=== PATIENT | female | born 1980 | race African-American/Black ===

== ENCOUNTER 2018-06-07 22:48 | Emergency (ER) | payer BC ==
--- NOTE | 2018-06-07 23:00 | EDPHY ---
H & P Stated Complaint: R HIP PAIN,UNABLE TO MOVE LEG/AFTER CHINESE MASSAGE Time Seen by Provider: 06/07/18 23:00 HPI/ROS: HPI CHIEF COMPLAINT: Right groin pain. HISTORY OF PRESENT ILLNESS: This is a very pleasant 38-year-old female she is otherwise healthy, denies significant medical history presents emergency room with right groin pain. Patient states that she typically gets 90 min massage once a week. She gets a CHINESE massage, which she reports to me is 90 min of deep tissue massage for head to toe. She states when she was working on her groin and legs she had her right leg winged out, flexed at her knee and then turned outward. The massage therapist then stood and put a lot of pressure on the right leg when it was flexed at the knee and then extended outward. This caused stress on her groin. She now has right inner groin discomfort. Appears to be a groin pull/tear. She denies any lateral hip pain. Denies numbness or tingling. With any flexion of her hip, extension of her leg off the bed, or external rotation of her leg she has discomfort in her right groin. Inguinal region.. Declined pain medicine here in emergency room. Past Medical History: Denies significant medical history Past Surgical History: Denies significant surgical history Social History: Denies drugs alcohol tobacco. Family History: Noncontributory ROS REVIEW OF SYSTEMS: 10 Systems were reviewed and negative with the exception of the elements mentioned in the history of present illness. Exam Constitutional triage nursing summary reviewed, vital signs reviewed, awake/ alert. Eyes normal conjunctivae and sclera, EOMI, PERRLA. HENT normal inspection, atraumatic, moist mucus membranes, no epistaxis, neck supple/ no meningismus, no raccoon eyes. Respiratory clear to auscultation bilaterally, normal breath sounds, no respiratory distress, no wheezing. Cardiovascular rate normal, regular rhythm, no murmur, no edema, distal pulses normal. Gastrointestinal soft, non-tender, no rebound, no guarding, normal bowel sounds, no distension, no pulsatile mass. Genitourinary no CVA tenderness. Musculoskeletal right leg right hip and right groin exam: Good femoral pulse. Distally neurovascular intact with normal sensation, warm extremity. Has focal tenderness with flexion of her hip in the inguinal region, external rotation of the leg causes pain in the inguinal region, and extending her leg off the bed gives her discomfort. No lateral hip pain. No signs of significant swelling. Appears to have a groin strain on exam. no midline vertebral tenderness, full range of motion, no calf swelling, no tenderness of extremities, no meningismus, good pulses, neurovascularly intact. Skin pink, warm, & dry, no rash, skin atraumatic. Neurologic awake, alert and oriented x 3, AAOx3, moves all 4 extremities equally, motor intact, sensory intact, CN II-XII intact, normal cerebellar, normal vision, normal speech. Psychiatric normal mood/affect. Heme/Lymph/Immune no lymphadenopathy. Differential Diagnosis: Includes but is not limited to in a particular order inguinal strain, groin strain, musculoskeletal strain, muscle tear, ligamentous injury, fracture Medical Decision Making: Plan for this patient x-ray right hip,, ice pack, declined pain medicine here in emergency room. Re-evaluation: Clinically on exam I believe her to have a groin strain. Recommend anti-inflammatory pain medicine Recommend ice Recommend following up with the PCP/Orthopedics. Patient may benefit from OT/PT. X-ray of the pelvis right hip reviewed negative for acute fracture. Clinically on exam I do feel that she has a groin strain. I do recommend she follows up with her PCP, orthopedics. Recommend ice. Recommend anti-inflammatory pain medicine. Patient declined pain medicine here. Patient is comfortable going home. Has a groin pull. She also understands to return emergency room she develops worsening pain questions or concerns. Source: Patient - Personal History LMP (Females 10-55): 22-28 Days Ago Current Tetanus Diphtheria and Acellular Pertussis (TDAP): Yes - Medical/Surgical History Hx Asthma: Yes Hx Chronic Respiratory Disease: No Hx Diabetes: No Hx Cardiac Disease: No Hx Renal Disease: No Hx Cirrhosis: No Hx Alcoholism: No Hx HIV/AIDS: No Hx Splenectomy or Spleen Trauma: No Other PMH: MIGRAINES, LAP FIBROID REMOVAL 2018, CHILDHOOD ASTHMA - Social History Smoking Status: Never smoked Constitutional: Initial Vital Signs Temperature (C) 36.7 C 06/07/18 22:54 Heart Rate 98 06/07/18 22:54 Respiratory Rate 18 06/07/18 22:54 Blood Pressure 123/96 H 06/07/18 22:54 O2 Sat (%) 100 06/07/18 22:54 O2 Delivery Mode Room Air Allergies/Adverse Reactions: caffeine Allergy (Verified 06/07/18 22:53) latex Allergy (Verified 06/07/18 22:53) peanut Allergy (Verified 06/07/18 22:53) tree nut Allergy (Verified 06/07/18 22:53) over the counter Allergy (Uncoded 06/07/18 22:53) pain med Allergy (Uncoded 06/07/18 22:53) Home Medications: Medication Instructions Recorded Isobipeptine 06/07/18 Toradol 10mg tab 06/07/18 Medical Decision Making - Diagnostics Imaging Results: Imaging Impressions Hip X-Ray 06/07/18 23:00 Impression: No acute, displaced fracture. Departure - Departure Disposition: Home, Routine, Self-Care Clinical Impression: Groin strain Qualifiers: Encounter type: initial encounter Laterality: right Qualified Code(s): S76.211A - Strain of adductor muscle, fascia and tendon of right thigh, initial encounter Condition: Good Instructions: Groin Strain (ED) Additional Instructions: 1. Recommend ice. 2. Recommend anti-inflammatory pain medicine 3. Recommend follow up PCP 4. Orthopedics. Referrals: Hattie Moore MD [Primary Care Provider] - As per Instructions Brian Mesa MD [Medical Doctor] - As per Instructions
[2018-06-08 00:04] VITALS: BP 114/75
== END 2018-06-08 00:03 | disposition home or self-care (01) ==
DX: S76.211A Strain of adductor muscle, fascia and tendon of right thigh, initial encounter (principal)

== ENCOUNTER 2018-09-19 20:23 | Emergency (ER) | payer BC ==
--- NOTE | 2018-09-19 20:40 | EDPHY ---
HPI/HX/ROS/PE/MDM - Data Points Imaging: I viewed and interpreted images myself Narrative: CHIEF COMPLAINT: Shortness of breath, pelvic pain HPI: This patient is a 38 year old female with history of anemia and migraines. She presents today with shortness of breath and pelvic discomfort. Her shortness of breath began yesterday evening before bed. She has difficulty taking a deep breath. She endorses associated headache. Today, she developed severe pelvic pain which radiates to her back and down both legs. This is sharp in nature and she cannot find a comfortable position. She denies any dysuria or hematuria. Her last menstrual period was about three weeks ago. The patient notes she has history of anemia requiring iron transfusion which presented with shortness of breath. She denies fever, chest pain, nausea, vomiting, diarrhea, or other associated symptoms. REVIEW OF SYSTEMS: A comprehensive 10 system review of systems is otherwise negative aside from elements mentioned in the history of present illness and medical decision making. PMH: Migraines. SOCIAL HISTORY: Lives in [place]. Self-employed. Single. PHYSICAL EXAM: General:Patient is alert, in no acute distress. ENT:Eyes are normal to inspection. ENT inspection normal. Neck: Normal inspection. Full range of motion. Respiratory:No respiratory distress. Breath sounds normal bilaterally. Cardiovascular: Regular rate and rhythm. Strong peripheral pulses. Normal cap refill. Abdomen:The abdomen is nontender to palpation. There are no peritoneal signs. There are normal bowel sounds. Back: Normal to inspection. No tenderness to palpation. Skin: Normal color. No rash. Warm and dry. Extremities: Normal appearance. Full range of motion. Neuro: Oriented x3. Normal motor function. Normal sensory function. (Burton Merritt) ED Course: 38 y/o female presents with shortness of breath and pelvic pain. Plan for EKG, chest x-ray, labs including CBC, chemistries, LFTs, UA, BHCG, d-dimer. EKG was ordered and interpreted by myself. Please see [facility] for official reading. Sinus rhythm. Chest x-ray shows evidence of bronchitis vs. airways disease. Reviewed laboratory studies. WBC elevated at 17,000. Labs otherwise unremarkable. D-dimer negative. UA negative. 22:15 Reassessed. Discussed imaging and laboratory results in detail. She declines any pain medications at this time. Plan for US pelvis for further evaluation. (Burton Merritt) The week ultrasound is negative. Will obtain CT scan of the abdomen pelvis for further evaluation. CT scan results are noted. There is soft tissue thickening in the region of the cervix. Patient has had recent negative GC and chlamydia testing. I have offered to perform pelvic exam and do further testing at this time and she is declining. She would prefer to follow up with her OBGYN. She is certainly not toxic in appearance. She does not want any further evaluation in the emergency department. Plan will be for discharge with follow-up as an outpatient. (John Stringer) - Data Points Imaging Results: Imaging Impressions Chest X-Ray 09/19/18 20:44 Impression: Findings most consistent with bronchitis/airways disease are noted. Pelvic/Renal Ultrasound 09/19/18 22:40 Impression: Normal pelvic ultrasound. Results called and discussed with Dr. John Davis on 09/19/2018 at 23:02. EXAM: CT Abdomen and Pelvis with Intravenous Contrast CLINICAL HISTORY: C/O PELVIC PAIN HX FIBROIDS TECHNIQUE: Axial computed tomography images of the abdomen and pelvis with intravenous contrast. CONTRAST: With; ISOVUE 300 80 ML COMPARISON: None provided. FINDINGS: LUNG BASES: No basilar airspace consolidation or pleural effusion. LIVER: The liver size is normal. 4 mm hypoenhancing lesion in the right lobe of the liver that is too small to characterize by CT criteria. GALLBLADDER AND BILE DUCTS: Unremarkable. No calcified stone. No ductal dilation. PANCREAS: Unremarkable. SPLEEN: Unremarkable. ADRENAL GLANDS: Unremarkable. KIDNEYS, URETERS, AND BLADDER: 4 mm cyst of the midpole of the left kidney. No hydronephrosis or nephrolithiasis. No ureteral or bladder calculi. STOMACH AND BOWEL: No obstruction. No wall thickening. No CT evidence of colitis or acute diverticulitis. APPENDIX: No CT evidence for appendicitis. PERITONEUM: Small amount of free fluid in the pelvis. No free air. LYMPH NODES: No lymphadenopathy. REPRODUCTIVE: The uterus and ovaries appear normal. There is thickening in the region of the cervix. VASCULATURE: No aortic aneurysm. BONES: No fracture or suspicious osseous abnormality. ABDOMINAL WALL AND SOFT TISSUES: Unremarkable. IMPRESSION: Soft tissue thickening in the region of the cervix. Cervical malignancy cannot be excluded. Follow-up with pelvic ultrasound is recommended. Small amount of nonspecific free fluid in the pelvis. ELECTRONICALLY SIGNED BY: Rodrigo Walker MD (John Stringer) Laboratory Results: Laboratory Results 09/19/18 20:53 09/19/18 20:53 09/19/18 09/19/18 09/19/18 20:53 20:53 20:53 WBC RBC Hgb Hct MCV MCH MCHC RDW Plt Count MPV Neut % (Auto) Lymph % (Auto) [place] % (Auto) Eos % (Auto) Baso % (Auto) Nucleat RBC Rel Count Absolute Neuts (auto) Absolute Lymphs (auto) Absolute Monos (auto) Absolute Eos (auto) Absolute Basos (auto) Absolute Nucleated RBC Immature Gran % Immature Gran # D-Dimer 0.29 ug/mLFEU ug/mLFEU (0.00-0.50) Sodium 139 mEq/L mEq/L (135-145) Potassium 3.8 mEq/L mEq/L (3.5-5.2) Chloride 103 mEq/L mEq/L (97-110) Carbon Dioxide 24 mEq/l mEq/l (22-31) Anion Gap 12 mEq/L mEq/L (6-14) BUN 8 mg/dL mg/dL (7-23) Creatinine 0.8 mg/dL mg/dL (0.6-1.0) Estimated GFR > 60 Glucose 94 mg/dL mg/dL (70-100) Calcium 9.6 mg/dL mg/dL (8.5-10.4) Total Bilirubin 0.9 mg/dL mg/dL (0.1-1.4) Conjugated Bilirubin 0.3 mg/dL mg/dL (0.0-0.5) Unconjugated Bilirubin 0.6 mg/dL mg/dL (0.0-1.1) AST 21 IU/L IU/L (14-46) ALT 17 IU/L IU/L (9-52) Alkaline Phosphatase 62 IU/L IU/L (38-126) Total Protein 8.1 g/dL g/dL (6.3-8.2) Albumin 4.7 g/dL g/dL (3.5-5.0) Beta HCG, Qual NEGATIVE Urine Color Urine Appearance Urine pH Ur Specific [place] Urine Protein Urine Ketones Urine Blood Urine Nitrate Urine Bilirubin Urine Urobilinogen Ur Leukocyte Esterase Urine Glucose 09/19/18 09/19/18 20:53 20:40 WBC 17.76 10^3/uL H 10^3/uL (3.80-9.50) RBC 4.54 10^6/uL 10^6/uL (4.18-5.33) Hgb 11.1 g/dL L g/dL (12.6-16.3) Hct 35.3 % L % (38.0-47.0) MCV 77.8 fL L fL (81.5-99.8) MCH 24.4 pg L pg (27.9-34.1) MCHC 31.4 g/dL L g/dL (32.4-36.7) RDW 17.4 % H % (11.5-15.2) Plt Count 364 10^3/uL 10^3/uL (150-400) MPV 10.1 fL fL (8.7-11.7) Neut % (Auto) 84.1 % H % (39.3-74.2) Lymph % (Auto) 8.4 % L % (15.0-45.0) [place] % (Auto) 6.5 % % (4.5-13.0) Eos % (Auto) 0.3 % L % (0.6-7.6) Baso % (Auto) 0.3 % % (0.3-1.7) Nucleat RBC Rel Count 0.0 % % (0.0-0.2) Absolute Neuts (auto) 14.93 10^3/uL H 10^3/uL (1.70-6.50) Absolute Lymphs (auto) 1.50 10^3/uL 10^3/uL (1.00-3.00) Absolute Monos (auto) 1.15 10^3/uL H 10^3/uL (0.30-0.80) Absolute Eos (auto) 0.05 10^3/uL 10^3/uL (0.03-0.40) Absolute Basos (auto) 0.06 10^3/uL 10^3/uL (0.02-0.10) Absolute Nucleated RBC 0.00 10^3/uL 10^3/uL (0-0.01) Immature Gran % 0.4 % % (0.0-1.1) Immature Gran # 0.07 10^3/uL 10^3/uL (0.00-0.10) D-Dimer Sodium Potassium Chloride Carbon Dioxide Anion Gap BUN Creatinine Estimated GFR Glucose Calcium Total Bilirubin Conjugated Bilirubin Unconjugated Bilirubin AST ALT Alkaline Phosphatase Total Protein Albumin Beta HCG, Qual Urine Color YELLOW Urine Appearance HAZY Urine pH 5.0 (5.0-7.5) Ur Specific [place] 1.028 (1.002-1.030) Urine Protein NEGATIVE (NEGATIVE) Urine Ketones TRACE H (NEGATIVE) Urine Blood NEGATIVE (NEGATIVE) Urine Nitrate NEGATIVE (NEGATIVE) Urine Bilirubin NEGATIVE (NEGATIVE) Urine Urobilinogen NEGATIVE EU EU (0.2-1.0) Ur Leukocyte Esterase NEGATIVE (NEGATIVE) Urine Glucose NEGATIVE (NEGATIVE) General Time Seen by Provider: 09/19/18 20:36 Initial Vital Signs: Initial Vital Signs Temperature (C) 37.4 C 09/19/18 20:39 Heart Rate 105 H 09/19/18 20:39 Respiratory Rate 16 09/19/18 20:39 Blood Pressure 160/111 H 09/19/18 20:39 O2 Sat (%) 99 09/19/18 20:39 O2 Delivery Mode Room Air Allergies/Adverse Reactions: caffeine Allergy (Verified 06/07/18 22:53) latex Allergy (Verified 06/07/18 22:53) peanut Allergy (Verified 06/07/18 22:53) tree nut Allergy (Verified 06/07/18 22:53) over the counter Allergy (Uncoded 06/07/18 22:53) pain med Allergy (Uncoded 06/07/18 22:53) Home Medications: Medication Instructions Recorded Isobipeptine 06/07/18 Toradol 10mg tab 06/07/18 Departure - Departure Disposition: Home, Routine, Self-Care Clinical Impression: Pain, female pelvic, Cervicitis Condition: Good Instructions: Pelvic Pain (ED) Additional Instructions: Your CT scan shows soft tissue thickening in the region of the cervix. Follow up with her OBGYN in 2-3 days for further evaluation. Return to the emergency department for increasing pain, fevers or chills, worsening shortness of breath, or any other concerns. Referrals: Kvng Rios MD [Medical Doctor] - As per Instructions Report Scribed for: Burton Merritt Report Scribed by: Lyndsay Gregg Date of Report: 09/19/18 Time of Report: 20:44 Physician Review and Approval Statement: Portions of this note were transcribed by an ED scribe. I personally performed the history, physical exam, and medical decision making; and confirm the accuracy of the information in the transcribed note.
[2018-09-19 21:05] LABS: PLATELET COUNT 364 10^3/uL (150-400)
--- NOTE | 2018-09-19 22:47 | CPEKG ---
Test Reason : OPEN Blood Pressure : / mmHG Vent. Rate : 090 BPM Atrial Rate : 090 BPM P-R Int : 154 ms QRS Dur : 075 ms QT Int : 346 ms P-R-T Axes : 072 055 036 degrees QTc Int : 424 ms Sinus rhythm Confirmed by Burton Merritt ([id number]) on 09/19/2018 10:47:02 PM Referred By: Burton Merritt Confirmed By:Burton Merritt
[2018-09-19] MEDS ORDERED: IOPAMIDOL (ISOVUE-300) 100 ML BTL ONE (23:51)
[2018-09-20 01:19] VITALS: BP 118/91
== END 2018-09-20 01:17 | disposition home or self-care (01) ==
LOC: EEVIPCON 20:23
DX: R06.02 Shortness of breath (principal); R10.2 Pelvic and perineal pain; N72 Inflammatory disease of cervix uteri
CPT/HCPCS: Q9967